=== PATIENT | female | born 1945 | race Asian ===

== ENCOUNTER 2017-09-15 18:23 | Emergency (ER) | payer OTHER ==
[2017-09-15] MEDS: HYDROCODONE/APAP (5/325) TAB PO (20:46)
[2017-09-15] MEDS: NEOMYC/POLYMYX/DEXAM 3.5GM OPH OINT RIGHT EYE (21:00)
== END 2017-09-15 22:00 | disposition home or self-care (01) ==
LOC: FTE 18:23
DX: H16.001 Unspecified corneal ulcer, right eye (principal)
CPT/HCPCS: 99283